=== PATIENT | male | born 1985 | race Caucasian/White ===

== ENCOUNTER 2016-07-19 20:13 | Emergency (ER) | payer OTHER ==
[~2016-07-19] VITALS: Ht 175.3 cm; Wt 85.0 kg
[~2016-07-19 20:13] MED LIST: ALBU4TAB10 PO
[2016-07-19 20:17] VITALS: TEMP 36.9; Ht 175.3 cm; Wt 85.0 kg
[2016-07-19] MEDS ORDERED: CARB200T PO (20:23)
[2016-07-19] MEDS ORDERED: XYLOCAINE 1%/SOD BICARB 20 ML VIAL INFIL ONE (20:45)
--- NOTE | 2016-07-19 21:16 | DIAGNOSTIC IMAGING REPORT ---
RIGHT HAND MIN 3 VIEWS ROUTINE CLINICAL HISTORY: 2nd MCP injury. COMPARISON: None FINDINGS: No acute fracture of the right hand is identified. There is a linear soft tissue defect along the lateral aspect of the second metacarpal head which could reflect a laceration. 2 punctate radiodensities are noted at the level of suspected laceration. IMPRESSION: 1. No acute fracture. 2. Suspected laceration along the lateral aspect of the right second metacarpal head. 2 adjacent punctate radiodensities could reflect debris/tiny foreign bodies. Electronically signed by: iGlmer Alvarez M.D. 07/19/2016 9:14 PM Dictated Date/Time: 07/19/2016 9:12 PM
[2016-07-19] MEDS ORDERED: CEPHALEXIN 500MG HOME PACK 1 EA BTL PO ONE (22:15)
[2016-07-19] MEDS ORDERED: CEPH500C PO (22:15)
--- NOTE | 2016-07-19 22:15 | EMERGENCY ROOM VISIT NOTE ---
ED Visit Note First contact with patient: 20:19 Chief Complaint: RIGHT Hand Laceration History of Present Illness: This patient is a 31-year-old male who presents to the Emergency Department by private vehicle for evaluation of their RIGHT hand laceration. 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 They report a moderate amount of bleeding initially. They deny any numbness or tingling into the distal extremity. They report no decreased range of motion of the affected digit. They have tried nothing for the pain. Patient rates his current discomfort as a 7/10. Patient's Tetanus status is currently up-to-date. Medications: No current medications. Allergies: No known allergies. PMH: No pertinent past medical history. SHx: Patient is a 31-year-old male who lives locally. ROS: All pertinent positive and negative review of systems are appropriately documented in the History of Present Illness. Physical Exam: VITAL SIGNS - Vital signs and nursing notes were reviewed. GENERAL - 31-year-old male appearing his stated age who is in no acute distress. Communicates well with provider and answers questions appropriately. SKIN - There is a 2.5 cm long laceration noted to the dorsal surface of the 2nd MCP. The edges gape apart with traction. No foreign bodies appreciated. Upon further examination there are no deep structures including vessel, tendon, or bony structures appreciated. There is no active bleeding noted. MUSCULOSKELETAL - Laceration as described above. +5/5 strength appreciated of the affected digit. Full range of motion of the affected digit. NEUROLOGIC - Spinothalamic tract was found to be intact with ability to discriminate sharp versus dull sensation. No sensory defects of the dorsal column were appreciated utilizing light touch for evaluation. VASCULAR - Capillary refill was brisk. IMAGING: RIGHT HAND MIN 3 VIEWS ROUTINE CLINICAL HISTORY: 2nd MCP injury. COMPARISON: None FINDINGS: No acute fracture of the right hand is identified. There is a linear soft tissue defect along the lateral aspect of the second metacarpal head which could reflect a laceration. 2 punctate radiodensities are noted at the level of suspected laceration. IMPRESSION: 1. No acute fracture. 2. Suspected laceration along the lateral aspect of the right second metacarpal head. 2 adjacent punctate radiodensities could reflect debris/tiny foreign bodies. ED Course: Patient was seen and evaluated by myself. X-ray of the hand was obtained. Imaging results as above. Costs and benefits of performing primary wound closure versus no repair were discussed with the patient who verbalizes understanding. Verbal consent was obtained prior to performing the procedure. The wound was repaired by the physician assistant manager trainee student under my direct supervision. 2.0 cc of 1% buffered lidocaine was used to anesthetize the RIGHT Hand laceration. The wound was cleansed and prepped in the typical sterile fashion utilizing normal saline and Betadine. The wound was sterilely draped. Once proper anesthetization was established, the wound was further examined and demonstrated a full thickness laceration without extension to the deep structures. The wound was copiously irrigated with normal saline and Betadine. The wound was closed using 3 simple, 5-0 nylon sutures with the wound edges being well approximated. Patient tolerated the procedure well. No complications were met. The wound was cleansed and dressed with a Bacitracin dressing. Patient educated on worrisome symptoms for return visit to the Emergency Department. Patient discharged to home in good condition. Impression: RIGHT Hand Laceration Discharge Instructions: You have received 3 sutures on your RIGHT Hand. These sutures are NOT dissolvable and WILL need to be removed by a health care provider in 10-12 days. You can return to the Emergency Department or contact your Primary Care Provider to have the sutures removed. Proper wound care is essential for adequate wound healing and infection prevention. You can shower and clean the wound with soap and water. Do not scour over the wound, pat dry with a towel. Do not submerse the wound (i.e. bathe or dish wash) until the sutures have been removed. You can use an antibiotic ointment with a dressing over the wound for the next 3-4 days. After this time you may leave the wound dry and open to the air. If crust develops over the wound you can use a Q-tip to apply a 1:1 peroxide:water solution to clean the wound. Look for signs of infection of the wound including: increased pain, swelling, foul discharge, streaking, or increased temperature. If any of these are noticed you should return to the Emergency Department for further assessment and treatment. As with any laceration you may have received nerve damage to the surrounding tissues. This damage may or may not be permanent. You should keep the area covered with sunscreen for the first 6 months to 1 year when at risk for exposure to help minimize scarring. You can also use scar reducing creams or Vitamin E oil to help minimize scarring. You were prescribed Keflex to be taken as prescribed. This is an antibiotic. All antibiotics have the potential to cause diarrhea. Stop this medication and contact a medical provider if you were to develop any significant adverse side effects including: wheezing, shortness of breath, passing out, vomiting, or a diffuse rash. Always take antibiotics as directed and COMPLETE the ENTIRE course regardless of the improvement of your symptoms. For pain control, you can use the following [id number] medicines (if >12 yo): - Regular strength (325mg/tab) Tylenol (acetaminophen) 2 tabs every 4-6 hours as needed. Do not exceed 12 tablets in a 24 hour period. Avoid taking more than 4 grams (4000 mg) of Tylenol per day. This includes any other sources of acetaminophen you may take on a regular basis. - Regular strength (200 mg/tab) Advil (ibuprofen) 1-2 tabs every 4-6 hours as needed. Do not exceed a dose of 3200 mg per day. Return to the emergency department if your symptoms worsen despite treatment course outlined above. Current/Historical Medications Scheduled Carbamazepine (Tegretol), 200 MG PO BID Cephalexin Monohydrate (Keflex), 500 MG PO QID Allergies Coded Allergies: No Known Allergies (Unverified , NONE, 07/19/16) Vital Signs Date Time Temp Pulse Resp B/P Pulse Ox O2 Delivery O2 Flow Rate FiO2 07/19/16 22:20 82 16 136/77 95 07/19/16 20:17 36.9 82 18 136/77 96 Room Air Medications Administered Medications (Trade) Dose Ordered Sig/Mason Route Start Time Stop Time Status Last Admin Dose Admin Cephalexin Monohydrate (Keflex 500MG Home Pack) 1 homepack NOW ONCE PO 07/19/16 22:15 07/19/16 22:16 DC 07/19/16 22:18 1 HOMEPACK Departure Information Impression Primary Impression: Laceration of hand Dispostion Home / Self-Care Condition GOOD Prescriptions Cephalexin Monohydrate (Keflex) 500 Mg Cap 500 MG PO QID for 5 Days, #20 CAP Prov: Jim Hernandez, RAJESH 07/19/16 Referrals Kendra Reyes M.D. (PCP) Patient Instructions ED Laceration Hand, [facility] Additional Instructions You have received 3 sutures on your RIGHT Hand. These sutures are NOT dissolvable and WILL need to be removed by a health care provider in 10-12 days. You can return to the Emergency Department or contact your Primary Care Provider to have the sutures removed. Proper wound care is essential for adequate wound healing and infection prevention. You can shower and clean the wound with soap and water. Do not scour over the wound, pat dry with a towel. Do not submerse the wound (i.e. bathe or dish wash) until the sutures have been removed. You can use an antibiotic ointment with a dressing over the wound for the next 3-4 days. After this time you may leave the wound dry and open to the air. If crust develops over the wound you can use a Q-tip to apply a 1:1 peroxide:water solution to clean the wound. Look for signs of infection of the wound including: increased pain, swelling, foul discharge, streaking, or increased temperature. If any of these are noticed you should return to the Emergency Department for further assessment and treatment. As with any laceration you may have received nerve damage to the surrounding tissues. This damage may or may not be permanent. You should keep the area covered with sunscreen for the first 6 months to 1 year when at risk for exposure to help minimize scarring. You can also use scar reducing creams or Vitamin E oil to help minimize scarring. You were prescribed Keflex to be taken as prescribed. This is an antibiotic. All antibiotics have the potential to cause diarrhea. Stop this medication and contact a medical provider if you were to develop any significant adverse side effects including: wheezing, shortness of breath, passing out, vomiting, or a diffuse rash. Always take antibiotics as directed and COMPLETE the ENTIRE course regardless of the improvement of your symptoms. For pain control, you can use the following [id number] medicines (if >12 yo): - Regular strength (325mg/tab) Tylenol (acetaminophen) 2 tabs every 4-6 hours as needed. Do not exceed 12 tablets in a 24 hour period. Avoid taking more than 4 grams (4000 mg) of Tylenol per day. This includes any other sources of acetaminophen you may take on a regular basis. - Regular strength (200 mg/tab) Advil (ibuprofen) 1-2 tabs every 4-6 hours as needed. Do not exceed a dose of 3200 mg per day. Return to the emergency department if your symptoms worsen despite treatment course outlined above. Problem Qualifiers Primary Impression: Laceration of hand Encounter type: initial encounter Foreign body presence: with foreign body Laterality: right Qualified Codes: S61.421A - Laceration with foreign body of right hand, initial encounter
[2016-07-19 22:20] VITALS: BP 136/77; PULSE 82; O2SAT 95
== END 2016-07-19 22:21 | disposition home or self-care (01) ==
LOC: C.EDB 20:15 → C.EDD 22:21
DX: S61.421A Laceration with foreign body of right hand, initial encounter (principal); W29.0XXA Contact with powered kitchen appliance, initial encounter